=== PATIENT | male | born 1975 | race African-American/Black ===

== ENCOUNTER 2017-12-27 22:31 | Emergency (ER) | payer OTHER ==
[2017-12-27 22:46] VITALS: BP 138/74; PULSE 68; RESP 16; TEMP 98
--- NOTE | 2017-12-27 23:48 | XR ---
EXAMINATION TYPE: XR foot complete LT DATE OF EXAM: 12/27/2017 COMPARISON: NONE HISTORY: Pain TECHNIQUE: 3 views FINDINGS: There is moderate hallux valgus. Metatarsals are intact. I see no fracture nor dislocation. IMPRESSION: Hallux valgus. No fracture seen.
--- NOTE | 2017-12-28 | ED ---
Skin/Abscess/FB HPI - General Source: patient Mode of arrival: ambulatory Limitations: no limitations <Catalina Harvey - Last Filed: 12/28/17 05:17> <Nicki Ruggiero - Last Filed: 12/28/17 06:23> - General Chief complaint: Skin/Abscess/Foreign Body Stated complaint: foot infection Time Seen by Provider: 12/27/17 23:06 - History of Present Illness Initial comments: 42-year-old male patient presents to the emergency department today for evaluation of lesion to the left heel. Patient states that he noticed lesion week or 2 ago. States it is painful any steps down on a. States it is hard. He denies any drainage, redness, or warmth to the area. Denies any fevers or chills. Denies any known injury to the foot. 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 He is not sure if there may be a foreign body to the foot. Denies any history of diabetes. Patient denies any headache, neck pain, back pain, chest pain, shortness of breath, dizziness, weakness, abdominal pain, nausea, vomiting, or difficulties with bowel movements or urination. (Catalina Harvey) - Related Data Home Medications Medication Instructions Recorded Confirmed Albuterol Inhaler [Ventolin Hfa 1 - 2 puff INHALATION RT-Q6H PRN 12/27/17 Inhaler] Doxycycline Hyclate 100 mg PO DAILY 12/27/17 12/27/17 Allergies Allergy/AdvReac Type Severity Reaction Status Date / Time No Known Allergies Allergy Unverified 12/27/17 22:57 Review of Systems ROS Other: All systems not noted in ROS Statement are negative. <Catalina Harvey - Last Filed: 12/28/17 05:17> ROS Other: All systems not noted in ROS Statement are negative. <Nicki Ruggiero - Last Filed: 12/28/17 06:23> ROS Statement: Those systems with pertinent positive or pertinent negative responses have been documented in the HPI. Past Medical History Past Medical History: Asthma History of Any Multi-Drug Resistant Organisms: None Reported Past Surgical History: No Surgical Hx Reported Past Psychological History: No Psychological Hx Reported Smoking Status: Current every day smoker Past Alcohol Use History: None Reported Past Drug Use History: None Reported <Catalina Harvey M - Last Filed: 12/28/17 05:17> General Exam Limitations: no limitations General appearance: alert, in no apparent distress, other (This is a well- developed, well-nourished adult male patient in no acute distress. Vital signs upon presentation are temperature 98.0F, pulse 68, respirations 16, blood pressure 138/74, pulse ox 98% on room air.) Respiratory exam: Present: normal lung sounds bilaterally. Absent: respiratory distress, wheezes, rales, rhonchi, stridor Cardiovascular Exam: Present: regular rate, normal rhythm, normal heart sounds. Absent: systolic murmur, diastolic murmur, rubs, gallop, clicks Extremities exam: Present: full ROM, normal capillary refill, other (Patient has hard, raised, scaly lesion with a central blackened area to the left heel. Area is tender to touch. No surrounding erythema or drainage. Skin is otherwise warm, dry, cap refill less than 3 seconds. Pedal pulse 2+ and equal bilaterally.). Absent: normal inspection, tenderness, pedal edema, joint swelling, calf tenderness Neurological exam: Present: alert, oriented X3, CN II-XII intact Psychiatric exam: Present: normal affect, normal mood Skin exam: Present: warm, dry, intact, normal color. Absent: rash <Catalina Harvey M - Last Filed: 12/28/17 05:17> Vital Signs 12/27/17 12/28/17 22:40 00:05 Temperature 98.0 F Pulse Rate 68 Respiratory 16 16 Rate Blood Pressure 138/74 O2 Sat by Pulse 98 Oximetry Medical Decision Making - Radiology Data Radiology results: report reviewed, image reviewed <Catalina Harvey M - Last Filed: 12/28/17 05:17> <Nicki Ruggiero - Last Filed: 12/28/17 06:23> - Medical Decision Making 42-year-old male patient presents emergency parents today for evaluation of lesion to the left heel. Physical examination did reveal a hard, raised, scaly lesion with central blackened area. This is consistent with plantar wart. We did obtain x-ray of the foot to rule out foreign body. No foreign body was noted. Did discuss findings with the patient. He is instructed to follow-up with podiatry or dermatology for further evaluation and management of the report. He is also instructed to purchase [id number] wart relief medication if he desires. Return parameters discussed in detail. He verbalizes understanding and agrees with this plan. (Catalina Harvey) I was available for consultation in the emergency department. The history and physical exam were done by the midlevel provider. I was consulted for this patient's care. I reviewed the case with the midlevel provider and based on their presentation of the patient, I agree with the assessment, medical decision making and plan of care as documented. (Nicki Ruggiero) - Radiology Data 3 views of the left foot are obtained. There is moderate hallux valgus. Metatarsals are intact rate is no fracture or dislocation. Impression by Dr. Jerez shows hallux valgus. No fracture seen. No evidence of foreign body. (Catalina Harvey) Disposition Is patient prescribed a controlled substance at d/c from ED?: No Time of Disposition: 23:59 <Catalina Harvey - Last Filed: 12/28/17 05:17> <Nicki Ruggiero - Last Filed: 12/28/17 06:23> Clinical Impression: Plantar wart Disposition: HOME SELF-CARE Condition: Good Instructions: Plantar Wart (ED) Additional Instructions: Use [id number] plantar wart medication or follow-up with dermatology/ podiatry for further evaluation and possible removal. Take Tylenol Motrin for pain control. Return immediately for any new, worsening, or concerning symptoms. Referrals: Clyde Schneider MD [STAFF PHYSICIAN] - 1-2 days Herman Rudolph DPM [STAFF PHYSICIAN] - 1-2 days
== END 2017-12-28 00:05 | disposition home or self-care (01) ==
LOC: EC 22:31
DX: B07.0 Plantar wart (principal); M20.12 Hallux valgus (acquired), left foot; J45.909 Unspecified asthma, uncomplicated; F17.200 Nicotine dependence, unspecified, uncomplicated
CPT/HCPCS: 99283